=== PATIENT | female | born 1980 | race African-American/Black ===

== ENCOUNTER 2022-06-25 07:14 | Inpatient (IN) | payer OTHER ==
[2022-06-25] MEDS ORDERED: Scopolamine 1.5 mg/72 hour Patch ONE (08:43)
[2022-06-25] MEDS ORDERED: Famotidine/PF 20 mg/2ml Vial ONE (08:43)
[2022-06-25 08:54] LABS: #Eosinphils 0.1 thou/uL (0.0-0.7); #Lymphocytes 2.1 thou/uL (1.20-3.40); #Monocytes 0.3 thou/uL (0.11-0.59); #Neutrophils 2.7 thou/uL (1.40-6.50); %Basophils 0.9 % (0.0-1.0); %Eosinophils 2.7 % (0.0-10.0); %Lymphocytes 40.2 % (21.0-51.0); %Monocytes 5.6 % (0.0-10.0); %Neutrophils 50.6 % (42.0-75.0); Hemoglobin 12.9 g/dL (12.0-16.0); Mean Corpuscular HGB CONC 32.5 g/dL (32.0-36.0); Mean Corpuscular Hemoglobin 24.6 pg (27.0-31.0); Mean Corpuscular Volume 75.8 fl (78.0-98.0); Platelet Count 220 10x3/uL (130-400); RBC Distribution Width 14.4 % (11.5-14.5); Red Blood Cell (RBC) Count 5.25 mill/uL (4.20-5.40); White Blood Cell (WBC) Count 5.3 10x3/uL (4.8-10.8)
[2022-06-25] MEDS ORDERED: PROPOFOL 200 MG/20 ML VIAL ONE (09:05)
[2022-06-25] MEDS ORDERED: Metoclopramide HCl 10 MG/2 ML VIAL ONE (09:05)
[2022-06-25] MEDS ORDERED: Lidocaine 1% PF 5 ML VIAL ONE (09:05)
[2022-06-25] MEDS ORDERED: Ketorolac Tromethamine 30 MG/ML VIAL ONE (09:05)
[2022-06-25] MEDS ORDERED: Ondansetron PF 4 MG/2 ML Vial ONE (09:05)
[2022-06-25] MEDS ORDERED: Dexamethasone 20 MG/5 ML VIAL ONE (09:05)
[2022-06-25] MEDS ORDERED: Rocuronium Bromide 10 MG/ML (10ML VIAL) ONE (09:05)
[2022-06-25 09:18] LABS: Anion Gap 13 mmol/L (10-20); BUN (Urea Nitrogen) 11 mg/dL (7.0-18.7); Calc. Creatinine Clearance 140 mL/min (70-130); Calcium 9.5 mg/dL (7.8-10.44); Carbon Dioxide 25 mmol/L (22-29); Chloride 107 mmol/L (98-107); Estimated GFR 88; Glucose 94 mg/dL (70-105); Potassium 3.8 mmol/L (3.5-5.1); Sodium 141 mmol/L (136-145)
[2022-06-25] MEDS ORDERED: Midazolam HCl 2 mg/2 ml Vial ONE (09:20)
[2022-06-25] MEDS ORDERED: CEFAZOLIN 2 GM VIAL ONE (09:37)
[2022-06-25] MEDS ORDERED: Sodium Chloride 0.9% 100 ML ONE (09:37)
[2022-06-25] MEDS ORDERED: Fentanyl 250 MCG/5 ML VIAL ONE (09:59)
[2022-06-25] MEDS ORDERED: SUGAMMADEX SODIUM 200 MG/2 ML VIAL ONE (11:16)
[2022-06-25] MEDS ORDERED: Mag-Al 1200 mg/1200 mg/30 ML UDCUP PO PRN (11:21)
[2022-06-25] MEDS ORDERED: Promethazine 25 MG TAB PO PRN (11:21)
[2022-06-25] MEDS ORDERED: diphenhydrAMINE 25 MG CAP PO PRN (11:21)
[2022-06-25] MEDS ORDERED: Milk Of Magnesia 30 ML UDCUP PO PRN (11:21)
[2022-06-25] MEDS ORDERED: Acetaminophen/Codeine 30-300mg Tablet PO PRN ×2 (11:21)
[2022-06-25] MEDS ORDERED: Ondansetron PF 4 MG/2 ML Vial IVP PRN (11:21)
[2022-06-25] MEDS ORDERED: traMADol HCl 50 MG TAB PO PRN (11:21)
[2022-06-25] MEDS ORDERED: Acetaminophen 325 MG TAB PO PRN (11:21)
[2022-06-25] MEDS ORDERED: fentaNYL PF 100 MCG/2 ML SYRINGE ONE ×2 (12:31→13:43)
[2022-06-25] MEDS: CEFAZOLIN 2 GM in Sodium Chloride 0.9% 100 ML IVPB SCH (17:36)
[2022-06-25] MEDS: Cyclobenzaprine 10 MG TAB PO PRN (17:36)
[2022-06-25] MEDS: Sodium Chloride 0.9% 1,000 ML IV SCH (17:37)
[2022-06-25 17:46] VITALS: BMI 36.3
[2022-06-25] MEDS: Morphine 2 MG/ML VIAL SLOW IVP PRN (19:54)
[2022-06-26] MEDS: Cyclobenzaprine 10 MG TAB PO PRN (03:18)
[2022-06-26] MEDS: Morphine 2 MG/ML VIAL SLOW IVP PRN (03:18)
[2022-06-26] MEDS: CEFAZOLIN 2 GM in Sodium Chloride 0.9% 100 ML IVPB SCH ×2 (03:19→09:00)
[2022-06-26] MEDS: Sodium Chloride 0.9% 1,000 ML IV SCH ×2 (03:45→07:17)
[2022-06-26] MEDS ORDERED: Phenol 118 ML BOT PO PRN (06:27)
[2022-06-26] MEDS ORDERED: Dexamethasone 20 MG/5 ML VIAL SLOW IVP SCH (06:30)
[2022-06-26] MEDS ORDERED: Dexamethasone 10 MG/ML VIAL SLOW IVP SCH (06:45)
[2022-06-26 08:26] VITALS: BP 150/97; TEMP 99.1
== END 2022-06-26 10:32 | disposition home or self-care (01) | DRG 473 ==
LOC: SURG A 07:14 → T4-A 17:28
PROVIDERS: ADMIT Neurological Surgery; ATTEND Neurological Surgery
PROC: 0RG20A0 Fusion of 2 or more Cervical Vertebral Joints with Interbody Fusion Device, Anterior Approach, Anterior Column, Open Approach (ICD-10-PCS; principal; 2022-06-25)
PROC: 0RT30ZZ Resection of Cervical Vertebral Disc, Open Approach (ICD-10-PCS; 2022-06-25)
PROC: 00NW0ZZ Release Cervical Spinal Cord, Open Approach (ICD-10-PCS; 2022-06-25)
DX: M50.31 Other cervical disc degeneration, high cervical region (principal); K21.9 Gastro-esophageal reflux disease without esophagitis; Z91.041 Radiographic dye allergy status; Z79.899 Other long term (current) drug therapy; M50.21 Other cervical disc displacement, high cervical region; R13.10 Dysphagia, unspecified
CPT/HCPCS: 80048; 85025; 93005; 93010; C1713; C1768; J1100; J1885; J2250; J2272; J2405; J2704; J2765; J3010; J3490; J7050; Q0169; S0028